=== PATIENT | female | born 1950 | race Asian ===

== ENCOUNTER → 2016-11-20 | Outpatient (CLI) | payer OTHER ==
[2016-11-20 17:22] LABS: Blood Urea Nitrogen 20 mg/dL (7-17); Non-African American GFR(MDRD) >60 (>60 ml/min/1.73 sqM)
--- NOTE | 2016-11-20 18:17 | CT ---
EXAMINATION TYPE: CT urogram wo/w con DATE OF EXAM: 11/20/2016 6:09 PM COMPARISON: NONE HISTORY: Microscopic hematuria. CT DLP: 650.10 mGycm Automated exposure control for dose reduction was used. CONTRAST: Performed with IV Contrast, patient injected with 100 mL of Omnipaque 300. FINDINGS: Lung bases are clear. There is no pleural effusion. There is a 1 cm cyst in the anterior right lobe o f the liver. Bile ducts are not dilated. Spleen and gallbladder pancreas appear normal. There is no a drenal mass. Noncontrast images show no renal calculus. There is no hydronephrosis. Kidneys show satisfactory contrast opacification. Ureters appear normal. There is a 5 mm cyst in the anterior right kidney. The bladder distends smoothly. There is no sign of a pelvic mass. There is no free fluid in the pelvi s. I see no intestinal wall thickening. There are no dilated loops. Appendix is not definitely seen. There is no sign of appendicitis. Terminal ileum appears normal. There is no sign of a bowel obstruct ion. There is atheromatous change in the abdominal aorta. I see no bony destructive process. IMPRESSION: SMALL RIGHT RENAL CORTICAL CYST. SMALL HEPATIC CYST. I DO NOT SEE A CAUSE FOR HEMATURIA. ATHEROSCLERO TIC VASCULAR DISEASE.
== END | disposition home or self-care (01) ==
LOC: RADCTMAIN 16:30
PROVIDERS: ATTEND Urology
DX: N28.1 Cyst of kidney, acquired (principal); K76.89 Other specified diseases of liver; I70.90 Unspecified atherosclerosis
CPT/HCPCS: 82565; 84520; 74178; 36415; 74400; Q9967

== ENCOUNTER → 2018-07-12 | Outpatient (CLI) | payer MEDICARE, OTHER ==
--- NOTE | 2018-07-12 15:27 | BD ---
EXAMINATION TYPE: Axial Bone Density DATE OF EXAM: 07/12/2018 CLINICAL HISTORY: Postmenopausal female. Osteoporosis screening. Final Height: 58.5 inches Weight: 119 RISK QUESTIONS: Alcohol (3 or more units per day): no Family History (Parent hip fracture): no Glucocorticoids (More than 3mos): discontinued since last study states patient (Ex: prednisone, prednisolone, methylprednisolone, dexamethasone, and hydrocortisone). History of Fracture in Adulthood: no Secondary Osteoporosis: 1. Type 1 Diabetes: no 2. Hyperthyroidism: no 3. Menopause before 45: hysterectomy age 43 4. Malnutrition: no 5. Chronic liver disease: no Rheumatoid Arthritis: YES Current Tobacco Use: no RISK FACTORS HISTORY OF: Family History of Osteoporosis: unsure Active: yes Diet low in dairy products/other sources of calcium: unsure Postmenopausal woman: yes Take estrogen and/or progesterone medications: no Lost more than 2 inches in height since high school: unsure Frequent falls: no Poor Health: unsure Hyperparathyroidism: no Adrenal Insufficiency: no MEDICATIONS: Prednisone or other steroids: discontinued, states patient Thyroid Medications: no Osteoporosis Medications: no Additional Medications: ANTINEOPLASTIC; blood pressure meds Additional History: breast CA 2011/ EXAM MEASUREMENTS: Bone mineral densitometry was performed using the [employer]. Bone mineral density as measured about the Lumbar spine is: ----- L1-L4(G/cm2): 0.783 T Score Values are as follows: ----- L2: -3.8 ----- L3: -3.4 ----- L4: -3.0 ----- L1-L4: -3.3 Bone mineral density has: Increased 6.4% since study of: 07/07/2016 Bone mineral density about the R hip (g/cm2): 0.813 Bone mineral density about the L hip (g/cm2): 0.703 T Score values are as follows: -----R Neck: -1.6 -----L Neck: -2.4 -----R Total: -1.4 -----L Total: -1.8 Bone mineral density has: Decreased -0.7% since study of: 07/07/2016 IMPRESSION: Osteopenia (T Score between -2.5 and -1) with regards to the lumbar spine. There is slightly increased risk of fracture and the patient may be considered for treatment. Re-Screen 2-5 years. NOTE: T-SCORE=SD OF THE YOUNG ADULT MEAN.
== END | disposition home or self-care (01) ==
LOC: RADBDWWP 09:16
PROVIDERS: ATTEND Internal Medicine Hematology & Oncology
DX: C50.419 Malignant neoplasm of upper-outer quadrant of unspecified female breast (principal); M85.88 Other specified disorders of bone density and structure, other site
CPT/HCPCS: 77080

== ENCOUNTER → 2020-07-15 | Outpatient (CLI) | payer MEDICARE, OTHER ==
--- NOTE | 2020-07-15 17:32 | BD ---
EXAMINATION TYPE: Axial Bone Density DATE OF EXAM: 07/15/2020 COMPARISON: 07/12/2018 CLINICAL HISTORY: Postmenopausal screening Height: 58.2 IN Weight: 120 LBS FRAX RISK QUESTIONS: Secondary Osteoporosis: 3. Menopause before 45: AGE 37 RISK FACTORS HISTORY OF: Active: YES Postmenopausal woman: AGE 37 MEDICATIONS: Additional Medications: CALCIUM, VIT D, LOSARTAN, CANCER MEDS, WATER PILLS, PRAVASTATIN, BREAST CANCE R Additional History: BREAST CANCER WITH CHEMO EXAM MEASUREMENTS: Bone mineral densitometry was performed using the [employer] System. Bone mineral density as measured about the Lumbar spine is: ----- L1-L4(G/cm2): 0.707 T Score Values are as follows: ----- L2: -4.8 ----- L3: -3.9 ----- L4: -3.6 ----- L1-L4: -3.9 Bone mineral density has: Decreased -10.1% since study of: 07/12/2018 Bone mineral density about the R hip (g/cm2): 0.826 Bone mineral density about the L hip (g/cm2): 0.775 T Score values are as follows: -----R Neck: -1.5 -----L Neck: -1.9 -----R Total: -1.4 -----L Total: -1.7 Bone mineral density has: Increased 1.1% since study of: 07/12/2018 IMPRESSION: Osteoporosis (T Score less than -2.5). There is increased fracture risk and therapy is usually indicated based on age. Re-Screen 1-2 years. NOTE: T-SCORE=SD OF THE YOUNG ADULT MEAN.
== END | disposition home or self-care (01) ==
LOC: RADBDWWP 08:26
PROVIDERS: ATTEND Internal Medicine Hematology & Oncology
DX: M81.8 Other osteoporosis without current pathological fracture (principal); Z79.890 Hormone replacement therapy
CPT/HCPCS: 77080

== ENCOUNTER → 2022-07-17 | Outpatient (CLI) | payer MEDICARE, OTHER ==
--- NOTE | 2022-07-17 09:06 | BD ---
EXAMINATION TYPE: Axial Bone Density DATE OF EXAM: 07/17/2022 COMPARISON: NONE CLINICAL HISTORY: 72 years year old Female. ICD-10 CODE: C50.419 Breast cancer Height: 58.5 Weight: 115.6 FRAX RISK QUESTIONS: Alcohol (3 or more units per day): NO Family History (Parent hip fracture): NO Glucocorticoids (More than 3mos): NO History of Fracture in Adulthood: NO Secondary Osteoporosis: 1. Type 1 Diabetes: NO 2. Hyperthyroidism: NO 3. Menopause before 45: YES 4. Malnutrition: NO 5. Chronic liver disease: NO Rheumatoid Arthritis: YES Current Tobacco Use: NO RISK FACTORS HISTORY OF: Hip Fracture (Right/Left): NO Spine Fracture: NO History of Wrist Fracture: NO Surgery to Spine/Hip(right/left)/Wrist (right/left): NO Family History of Osteoporosis: NO Active: YES Diet low in dairy products/other sources of calcium: NO Postmenopausal woman: YES Take estrogen and/or progesterone medications: NO Lost more than 2 inches in height since high school: NO Frequent falls: NO Poor Health: NO Hyperparathyroidism: NO Adrenal Insufficiency: NO MEDICATIONS: Prednisone or other steroids: NO Thyroid Medications: NO Osteoporosis Medications: NO Additional Medications: CALCIUM, VIT D, CHOLESTEROL MEDS, BP MEDS, Additional History: BILATERAL BREAST CA WITH CHEMO EXAM MEASUREMENTS: Bone mineral densitometry was performed using the [employer] System. Bone mineral density as measured about the Lumbar spine is: ----- L1-L4(G/cm2): 0.722 T Score Values are as follows: ----- L1: -3.9 ----- L2: -4.4 ----- L3: -3.9 ----- L4: -3.4 ----- L1-L4: -3.8 Bone mineral density has: DECREASED 6.9 % since study of: 07/12/2018 Bone mineral density about the R hip (g/cm2): 1.173 Bone mineral density about the L hip (g/cm2): 1.009 T Score values are as follows: -----R Neck: 1.0 -----L Neck: 0.2 -----R Total: -0.8 -----L Total: -1.1 Bone mineral density has: INCREASED 10.2 % since study of: 07/12/2018 FRAX%s: The graph provided illustrates a 9.2% chance for a major osteoporotic fx and a 0.6^ chance fo r the hips probability for fx in 10 years time. IMPRESSION: Osteoporosis (T Score less than -2.5). There is increased fracture risk and therapy is usually indicated based on age. Re-Screen 1-2 years. NOTE: T-SCORE=SD OF THE YOUNG ADULT MEAN.
== END | disposition home or self-care (01) ==
LOC: RADBDWWP 07:20
PROVIDERS: ATTEND Internal Medicine Hematology & Oncology
DX: C50.411 Malignant neoplasm of upper-outer quadrant of right female breast (principal); M81.0 Age-related osteoporosis without current pathological fracture; Z78.0 Asymptomatic menopausal state
CPT/HCPCS: 77080

== ENCOUNTER → 2024-10-20 | Outpatient (CLI) | payer MEDICARE, OTHER ==
--- NOTE | 2024-10-20 18:28 | BD ---
EXAMINATION TYPE: Axial Bone Density DATE OF EXAM: 10/20/2024 CLINICAL HISTORY: 74 years old Female. ICD-10 CODE: M81.0 AGE RELATED OSTEO , Additional History: Height: 58 Weight: 114.3 FRAX RISK QUESTIONS: Alcohol (3 or more units per day): no Family History (Parent hip fracture): no Glucocorticoids (More than 3mos): no (Ex: prednisone, prednisolone, methylprednisolone, dexamethasone, and hydrocortisone). History of Fracture in Adulthood: no Secondary Osteoporosis: 1. Type 1 Diabetes: no 2. Hyperthyroidism: no 3. Menopause before 45: no 4. Malnutrition: no 5. Chronic liver disease: no Rheumatoid Arthritis: yes Current Tobacco Use: no RISK FACTORS HISTORY OF: Hip Fracture (Right/Left): no Spine Fracture: no History of Wrist Fracture: no Surgery to Spine/Hip(right/left)/Wrist (right/left): no MEDICATIONS: Thyroid Medications:no Osteoporosis Medications: no EXAM MEASUREMENTS: Bone mineral densitometry was performed using the [employer] System. Bone mineral density as measured about the Lumbar spine is: ----- L1-L4(G/cm2):0.745 T Score Values are as follows: ----- L1: -3.5 ----- L2: -3.8 ----- L3: -3.7 ----- L4: -3.6 ----- L1-L4: -3.6 Z Score Values are as follows: ----- L1: -1.3 ----- L2: -1.7 ----- L3: -1.6 ----- L4: -1.4 ----- L1-L4: -1.5 Bone mineral density has: increased 3.25% since study of 07/17/2022 Bone mineral density about the R hip (g/cm2): 0.863 Bone mineral density about the L hip (g/cm2): 0.820 T Score values are as follows: -----R Neck: -0.2 -----L Neck: -1.7 -----R Total: -1.1 -----L Total: -1.5 Z Score values are as follows: -----R Neck: 1.9 -----L Neck: 0.3 -----R Total: 0.8 -----L Total: 0.4 Bone mineral density has: decreased -5.3% since the study of 07/17/2022 FRAX%s: The graph provided illustrates a 8.3 chance for a major osteoporotic fx and a 1.8 chance for the hips probability for fx in 10 years time. IMPRESSION: Osteoporosis (T Score less than -2.5). There is increased fracture risk and therapy is usually indicated based on age. Re-Screen 1-2 years. NOTE: T-SCORE=SD OF THE YOUNG ADULT MEAN. [facility], , 10/20/2024 6:25 PM
== END | disposition home or self-care (01) ==
LOC: RADBDWWP 12:52
PROVIDERS: ATTEND Internal Medicine Hematology & Oncology
DX: M81.0 Age-related osteoporosis without current pathological fracture (principal)
CPT/HCPCS: 77080